=== PATIENT | male | born 1950 | race Two or more races ===

== ENCOUNTER 2019-07-20 08:30 | Inpatient (IN) | payer BC, MEDICARE ==
[~2019-07-20] VITALS: Ht 182.9 cm; Wt 83.9 kg
[~2019-07-20 08:30] MED LIST: ceFAZolin sod 1 GM in NS 55 ML IVPB ONE
[2019-07-22] VITALS (12 sets, daily range): BP systolic 97–136; BP diastolic 52–88
[2019-07-22] MEDS ORDERED: DEXAMETHASONE4 M1 IV (11:48)
[2019-07-22] MEDS ORDERED: VENCLEXTA PO (11:48)
[2019-07-22] MEDS ORDERED: DOXYCYCLINE MO100 MG ORAL (11:49)
[2019-07-22] MEDS ORDERED: ceFAZolin sod 1 GM in NS 55 ML IVPB ONE (12:00)
[2019-07-22] MEDS ORDERED: Succinylcholine 20mg/ml 10ml vial ONE (12:07)
[2019-07-22] MEDS ORDERED: Rocuronium Bromide 100mg/10ml Inj IV ONE (12:07)
[2019-07-22] MEDS ORDERED: Lidocaine 1% MPF 10mg/ml 5ml ONE (12:12)
[2019-07-22] MEDS ORDERED: fentaNYL 100 mcg/2 mL IV ONE (12:23)
[2019-07-22] MEDS ORDERED: Lacri-Lube Opth Oint 3.5gm ONE (12:29)
[2019-07-22] MEDS ORDERED: Vancomycin 1gm vial IVPB ONE (12:29)
[2019-07-22] MEDS ORDERED: Thrombin 5000 units TOPIC ONE (12:30)
[2019-07-22] MEDS ORDERED: Gelfoam Size TOPIC ONE (12:30)
[2019-07-22] MEDS ORDERED: Thrombin 5000 units spray kit TOPIC ONE (12:30)
[2019-07-22] MEDS ORDERED: Gelfoam Absorbable 1gm powder pkt TOPIC ONE (12:30)
[2019-07-22] MEDS ORDERED: Bupivacaine w/Epi 0.5% 30ml Vial INJ ONE (12:30)
[2019-07-22] MEDS ORDERED: Bacitracin 50000 Units Vial ONE (12:31)
[2019-07-22] MEDS ORDERED: Sterile Water Irrig 1000ml IRRIG ONE (13:00)
[2019-07-22] MEDS ORDERED: NS Irrig 1000ml ONE (13:00)
[2019-07-22] MEDS ORDERED: propofoL 1,000mg/100ml IV ONE (13:00)
[2019-07-22] MEDS ORDERED: LR 1000ml ONE (13:00)
[2019-07-22] MEDS ORDERED: Neostigmine 1mg/ml 10ml Inj ONE (13:00)
--- NOTE | 2019-07-22 13:19 | Anethesia Preoperative Eval ---
Anesthesia Pre-op PMH/ROS General Date of Evaluation: Jul 22, 2019 Time of Evaluation: 13:16 Anesthesiologist: Reyna ASA Score: ASA 2 Mallampati Score Class I : Soft palate, uvula, fauces, pillars visible Class II: Soft palate, uvula, fauces visible Class III: Soft palate, base of uvula visible Class IV: Only hard plate visible Mallampati Classification: Class II Surgeon: Amadou Diagnosis: Symptomatic spinal stenosis Surgical Procedure: Lumbar laminotomy Anesthesia History: none Family History: no anesthesia problems Allergies: Coded Allergies: No Known Allergies (Unverified , 07/15/19) Medications: see eMAR Patient NPO?: Yes Past Medical History Cardiovascular: Reports: arrhythmia - h/o A fib; Denies: HTN, CAD, VA, valve dz, other Pulmonary: Denies: asthma, COPD, ANU, other Gastrointestinal/Genitourinary: Reports: GERD - mild; Denies: CRI, ESRD, other Neurologic/Psychiatric: Reports: other - chronic pain; Denies: dementia, CVA, depression/anxiety, TIA Endocrine: Denies: DM, hypothyroidism, steroids, other HEENT: Reports: cataract (L), cataract (R) - s/p bilateral Sx; Denies: glaucoma, KLAWOCK (L), K[place]OCK (R), other Hematology/Immune: Reports: DVT - h/o PA off anticoagulation, IVC filter in, other - multiple myeloma in remission Musculoskeletal/Integumentary: Reports: OA; Denies: RA, DJD, DDD, edema, other PMH Narrative: as above PSxH Narrative: Bilateral cataracts Anesthesia Pre-op Phys. Exam Physician Exam Last Vital Signs Date Time Temp Pulse Resp B/P (MAP) Pulse Ox O2 Delivery O2 Flow Rate FiO2 07/22/19 11:52 Room Air 07/22/19 11:21 97.4 93 18 136/88 (104) 96 Constitutional: NAD Neurologic: CN 2-12 intact Cardiovascular: RRR, no M/R/G Respiratory: CTA Gastrointestinal: S/NT/ND Airway Exam Mallampati Score: Class II MO: full Neck: flexible Teeth: missing Dentures: no upper, no lower Anesthesia Pre-op A/P Labs see chart Studies Pre-op Studies: EKG - NSR, CXR - WNL Risk Assessment & Plan Assessment: ASA 2 Plan: GA with ETT neuromonitoring Status Change Before Surgery: No Pre-Antibiotics Drug: Ancef 2gr Given Within 1 Hr of Incision: Yes Time Given: 13:45 Wilbur Orellana MD Jul 22, 2019 13:19
--- NOTE | 2019-07-22 13:33 | Pre-Procedure Note/Attestation ---
Pre-Procedure Note/Attestation Complete Prior to Procedure Procedure Narrative: L2-5 laminectomy and Discectomy Indications for Procedure Pre-Operative Diagnosis: L2-5 stenosis, R le radic with footdrop Attestation I attest that I discussed the nature of the procedure; its benefits; risks and complications; and alternatives (and the risks and benefits of such alternatives ), prior to the procedure, with the patient (or the patient's legal healthcare sales representative). I attest that, if there was a reasonable possibility of needing a blood transfusion, the patient (or the patient's legal healthcare sales representative) was given the [facility] standardized written summary, pursuant to the [place] Blood Safety Act ([place] Health and Safety Code # 1645, as amended). I attest that I re-evaluated the patient just prior to the surgery and that there has been no change in the patient's H&P, except as documented below: Aurelio Tobar MD Jul 22, 2019 13:33
--- NOTE | 2019-07-22 13:36 | Brief Operative Note ---
Immediate Post Operative Note Operative Note Pre-op Diagnosis: L2-5 stenosis, R le radic with footdrop Procedure: l2-5 laminectomy and discectomy Post-op Diagnosis: same as pre-op Findings: consistent w/pre-op dx studies Surgeon: jas Planning Aide: nuria DO Anesthesiologist: lizzette Anesthesia: general Specimen: none Complications: none Condition: stable Fluids: 1400 Estimated Blood Loss: volume - 250 Drains: none Implant(s) used?: No Aurelio Tobar MD Jul 22, 2019 13:36
[2019-07-22] MEDS ORDERED: Acetaminophen (Non formulary) 100 ML IV ONE (14:00)
[2019-07-22] MEDS ORDERED: Morphine Sulfate 10mg/ml Inj ONE (14:29)
[2019-07-22] MEDS ORDERED: Sodium Chloride 10ml vial INJ ONE (14:30)
[2019-07-22] MEDS ORDERED: Glycopyrrolate 0.2mg/ml 1ml Vial ONE (14:34)
[2019-07-22] MEDS ORDERED: LR 1000ml 1,000 ML IVLG SCH (14:46)
[2019-07-22] MEDS ORDERED: Ketorolac 30mg Inj IV PRN (15:00)
[2019-07-22] MEDS ORDERED: Hydromorphone 0.5mg/0.5ml inj IVP PRN (15:00)
--- NOTE | 2019-07-22 16:21 | Diagnostic Imaging Report ---
INDICATION: Pain, intraoperative TECHNIQUE: Intraoperative imaging Fluoroscopy time: 5.9 seconds Total dose: 0.22519 mGym2 Total number of images: 2 COMPARISON: None FINDINGS: Intraoperative images demonstrate localizing needles projected posteriorly to what are presumably L2-3 and L3-4. Subsequent images demonstrate surgical tool projected posterior to L4 IMPRESSION: Intraoperative imaging, as described
--- NOTE | 2019-07-22 16:59 | Immediate Post-Op Evaluation ---
Immediate Post-Op Evalulation Immediate Post-Op Evalulation Procedure: L3 to S1 laminotomy with decompression Date of Evaluation: Jul 22, 2019 Time of Evaluation: 16:58 IV Fluids: 1500 Blood Products: Albumin 250 Estimated Blood Loss: 250 Urinary Output: 150 Blood Pressure Systolic: 115 Blood Pressure Diastolic: 66 Pulse Rate: 82 Respiratory Rate: 20 O2 Sat by Pulse Oximetry: 99 Temperature (Fahrenheit): 98.5 Pain Score (1-10): 1 Nausea: No Vomiting: No Complications none Patient Status: reacts, patent, extubated, none Wilbur Orellana MD Jul 22, 2019 16:59
[2019-07-22 17:11] LABS: HEMATOCRIT 34.8 % (42.0-52.0); HEMOGLOBIN 10.9 G/DL (14.2-18.0); MEAN CORPUSCULAR VOLUME 105 FL (80-99); PLATELET COUNT 90 K/UL (150-450); RED CELL DISTRIBUTION WIDTH 13.1 % (11.6-14.8); WHITE BLOOD COUNT 6.4 K/UL (4.8-10.8)
[2019-07-22] MEDS ORDERED: Docusate 100mg cap ORAL SCH (18:00)
--- NOTE | 2019-07-22 18:15 | Consultation ---
DATE OF CONSULTATION: 07/22/2019 CONSULTING PHYSICIAN: Barrett Shi MD. REFERRING PHYSICIAN: Aurelio Tobar MD. REASON FOR CONSULTATION: Acute pain consult. HISTORY OF PRESENT ILLNESS: Dr. Aurelio Tobar, Thank you kindly for consulting me to evaluate and render an opinion as to how to proceed in the management of patient's acute postoperative lumbar spine pain after his scheduled multiple level bilateral lumbar spine decompressive surgery today. 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 Six years ago, he was diagnosed with multiple myeloma. He is followed by outpatient oncologist closely. Patient has had worsening footdrop and lower back pain over the past several months requiring decompressive surgery today. You consulted me to help optimize this patient's postoperative pain control and assist with his postoperative management care. I saw the patient at bedside. I performed a detailed history and physical examination. I reviewed the medical record in detail. I spent over 75 minutes in consultation with an additional 30 minutes in medical record review including 45 minutes of [id number] time with the patient today and discussions with yourself, Dr. Tobar. PAST MEDICAL HISTORY: 1. Lumbar spine pain with scheduled multiple level decompressive lumbar spine surgery with Dr. Aurelio Tobar in July 2019. 2. Multiple myeloma elderly age. 3. History of pulmonary embolism in 2015 requiring hospitalization. 4. History of paroxysmal atrial fibrillation, currently in normal sinus rhythm, followed by a acquisition analyst, Dr. Mack. 5. History of thrombocytopenia. MEDICATIONS: At home, dexamethasone, Velcade, Venclexta, daratumumab, doxycycline, Xarelto 20 mg daily, last dose 2 weeks ago, Percocet tablets unclear if 5 mg to 10 mg, taking 1 tablet every other day p.r.n. PAST SURGICAL HISTORY: IVC filter placed 2 weeks ago for DVT prophylaxis, cataract surgery in 2018, endoscopy, colonoscopy. FAMILY HISTORY: Thyroid cancer, maternal, lymphoma, breast cancer, coronary artery disease. 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 Patient drinks alcohol rarely. He denies tobacco or marijuana usage. He lives at home with his . ALLERGIES: No known drug allergies. REVIEW OF SYSTEMS: Per attending physician. PHYSICAL EXAMINATION: VITAL SIGNS: Age 69, height 6 feet 0, weight 84 kg. Body mass index 25. Preoperative vital signs, afebrile, pulse 93, respirations 18, blood pressure 136/88, oxygen saturation 96% on room air. HEENT: Normocephalic and atraumatic. CARDIOPULMONARY: A detailed cardiopulmonary exam per Dr. Pate. NEUROLOGIC: A detailed lumbar spine and neurologic exam per Dr. Tobar. GENITOURINARY: Deferred. DIAGNOSTIC TESTING: Shows urinalysis negative. INR 1.1. PTT 27. Laboratories from 07/15/2019, glucose 97, sodium 141, potassium 4.1, chloride 109, bicarb 25, BUN 21, creatinine 1.0, calcium 9.1, total protein 5.6, albumin 4.0. AST 12, ALT 14, alkaline phosphatase 34, total bilirubin 0.6. White count 5, hematocrit 35, platelets 126. COVID preop testing negative 07/15/1999. A 12-lead EKG shows marked left axis deviation, heart rate 92. Preoperative chest x-ray shows no radiographic evidence of acute cardiopulmonary disease or pneumonia dated 07/15/2019. IMPRESSION: 1. Lumbar spine pain with scheduled multiple level decompressive lumbar spine surgery with Dr. Aurelio Tobar in July 2019. 2. Multiple myeloma elderly age. 3. History of pulmonary embolism in 2015 requiring hospitalization. 4. History of paroxysmal atrial fibrillation, currently in normal sinus rhythm, followed by a acquisition analyst Dr. Mack. 5. History of thrombocytopenia. 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 He has been using Percocet chronically although he used the medication rarely. Since he is able to tolerate oxycodone without any adverse side effects, I will start him on oxycodone instant release 10 mg every 3 hours p.r.n. for mild pain. He denies any allergies and cannot recall exposure to morphine or Dilaudid in the past. I have set up 2 different doses of Dilaudid starting with 0.5 mg intravenously every 2 hours as needed for moderate pain. I have ordered a double dose of 1 mg subcutaneous Dilaudid every 3 hours as needed for severe breakthrough pain. At this time, I will hold off on the class of benzodiazepines as he does not appear to show any anxiety symptoms. He also seems very compliant. To help reduce the risk for any urinary retention issues postoperatively, I have ordered Flomax 0.4 mg daily along with t.i.d. dosing of Urecholine 25 mg. I have asked the nursing team to place Chloraseptic spray at the bedside in case of any sore throat complaints postoperatively. I have added a p.r.n. dose of Benadryl 25 mg orally every 6 hours in case of any itching complaints. I will place patient on Colace 100 mg b.i.d. to help with bowel regularity and I will order a p.r.n. dose of milk of magnesia as a rescue laxative. I have ordered Fioricet tablets 1 tablet orally every 8 hours in case of any headache symptoms. I have ordered Benadryl 25 mg orally every 6 hours p.r.n. for any itching symptoms postoperatively. I have ordered Zofran 4 mg intravenously every 4 hours as a rescue antiemetic. I will place patient on Protonix 40 mg nightly for GI ulcer prophylaxis and I have also ordered a p.r.n. dose of Mylanta 30 mL q.6h. in case of any GERD symptom exacerbation. Tylenol is available as a rescue antipyretic agent and I will order incentive spirometer to encourage good pulmonary toilet. The patient had an IVC filter placed for DVT prophylaxis approximately 2 weeks ago. Patient also has a history of using Xarelto 20 mg daily, previous to the IVC filter being placed. I will defer to Dr. Tobar and his team to determine if chemical anticoagulation needs to be restarted, in addition to the use of sequential compression pneumatic devices per the surgeon. Barrett Shi M.D. DR: JACOBO JOB#: [id number] CC:
[2019-07-22] MEDS ORDERED: Chloraseptic Spray 20mL Bottle ORAL PRN (19:00)
[2019-07-22] MEDS ORDERED: HYDROcodone/Acetamin 7.5/325 tab ORAL PRN (19:00)
[2019-07-22] MEDS ORDERED: oxyCODONE 5mg IR tab ORAL PRN (19:00)
[2019-07-22] MEDS ORDERED: Metoclopramide 10mg/2ml Inj IVP PRN (19:00)
[2019-07-22] MEDS ORDERED: DiphenhydrAMINE 25mg Tab ORAL PRN (19:00)
[2019-07-22] MEDS ORDERED: HYDROmorphone 1mg/ml Carpuject IVP PRN (19:00)
[2019-07-22] MEDS: D5 1/2NS 1,000 ML IV SCH (19:00)
--- NOTE | 2019-07-22 20:45 | Operative Note - Dictated ---
DATE OF OPERATION: 07/22/2019 SURGEON: Aurelio Tobar M.D. FACILITIES PLANNER: ERNESTINA Cannon ANESTHESIA: Wilbur Orellana M.D. ANESTHESIA TYPE: General endotracheal anesthesia. PREOPERATIVE DIAGNOSES: 1. L3-L4 disc extrusion with radiculopathy, right lower extremity and footdrop. 2. Spinal stenosis L2-L3, L3-L4, and L4-L5 foramen. POSTOPERATIVE DIAGNOSES: 1. L3-L4 disc extrusion with radiculopathy, right lower extremity and footdrop. 2. Spinal stenosis L2-L3, L3-L4, and L4-L5 foramen. PROCEDURES: 1. Right-sided laminectomy, microdiskectomy L3-L4. 2. Foraminotomy L3-L4 and L4-L5, right side. 3. Bilateral laminal foraminotomy performed through a right-sided approach at L3-L4 and L4-L5. 4. Neurolysis L4 nerve roots. 5. Use of operating microscope. 6. Neurodiagnostic monitoring. ESTIMATED BLOOD LOSS: 250 mL. FLUIDS: 1400 mL. INDICATIONS: The patient is a very pleasant gentleman with a significant right-sided footdrop. He had sustained a disk herniation. He also does have history of myeloma, status post DVT requiring vena cava filter. Pros, cons, risks, and benefits of surgery were discussed. Due to the dense nature of the footdrop, surgical recommendation was recommended. I did discuss with him the fact that the nerve recovery may not come back after the procedure session. RISK NOTE: The patient was explained in detail risks and benefits of surgery to include, but not be limited to those of bleeding, infection, damage to nerves, vessels, tendons, anesthetic risk, allergic reaction, aspiration, possibly . The patient understood and wished to proceed. I specifically did discuss that there may be incomplete nerve root recovery. The patient understood and wished to proceed. OPERATIVE PROCEDURE IN DETAIL: The patient was taken to the operating suite. After general endotracheal anesthesia was obtained, Hogan catheter was placed. At this point, the patient was turned prone onto the Reji frame. The back was prepped and draped in the usual sterile fashion after all bony prominences were well padded. At this point, fluoroscope was brought in place and needles were placed and was felt to be the L3-L4 and L4-L5 level. We were able to confirm the levels. The patient then received 10 mL of lidocaine/Marcaine with epinephrine. The incision was made from L2 through L5. At this point, subperiosteal dissection was carried out at L2-L3, L3-L4, and L4-L5. The levels were confirmed. A small self-retaining Olvera retractor was inserted. Once the levels were confirmed fluoroscopically, a high-speed drill was used to perform laminectomy of the inferior portion of L3 and superior portion of L4. Medial facetectomy was performed using a high-speed drill. The ligamentum flavum was removed in a piecemeal fashion. The extensive epidural lipomatosis was encountered and this was removed. At this point, the nerve was gently retracted medially. The space directly under the exiting L4 nerve roots was probed and incised. A remnant of a relatively large disk herniation was removed in a piecemeal fashion from under the L4 nerve root. The nerve root was markedly swollen and irregularly shaped. A neurolysis was performed to free up this nerve root. We were then able to mobilize and remove the remainder of the extruded disk fragment. At this point, several passes were made within the disk space itself demonstrating a near complete empty disc phenomenon. Any loose disk fragments were removed. Copious intradiscal irrigation was performed as well as irrigation of the pocket through which the disk extrusion had migrated inferiorly. At this point, a subtotal L4 laminectomy was performed from the top portion and a foraminotomy at the L4-L5 level was performed and was probed to be free. Once satisfied with this, copious irrigation was performed. High-speed drill was then used to drill out the contralateral lamina and perform a left-sided laminectomy at the L3-L4 level as well. Ligamentum flavum was removed in a piecemeal fashion. FloSeal was then applied. Attention was turned to the L2-L3 level and hemilaminotomy, foraminotomy, and medial facetectomy was performed using standard technique using high-speed drill, curved curettes, and Kerrison punches. The table was once again rotated and then oblique drilling of the undersurface of the lamina of L2-L3 was performed decompressing the left side as well. Copious irrigation was performed. Valsalva maneuver was performed demonstrating no evidence of CSF leak. Once satisfied with this, FloSeal was applied. Meticulous hemostasis was achieved. The patient then received 1 gram of vancomycin powder. The fascia was repaired using #1 Vicryl and subcutaneous closure using 2-0 Vicryl. Please note that, medium Hemovac subfascial drain was placed. Once a sterile dressing was applied, the patient was turned onto his back, awakened, extubated, and transferred to recovery room in stable condition. The Hogan catheter was removed. INTRAOPERATIVE FINDINGS: At this point, the patient was noted to have extensive scar tissue formation and epidural lipomatosis both at the L2-L3, L3-L4 level, which also resulted in very soft tissues. This did result in a lot of oozing and generalized capillary bleeding, which was rather unexpected, especially within the epidural space. Aurelio Jonny Tobar DR: HODAN JOB#: [id number] CC: DARA
--- NOTE | 2019-07-22 21:23 | Cardiology Progress Note ---
Assessment/Plan Assessment/Plan full note dicataed [id number] tele observation ekg labs in am ivf neuro consutl d/w dr sosa ct of head neg for gors accute ic abnormlaities d/we pt post ct his sx are not changed post ct he was able to urinate Objective Last 24 Hour Vital Signs Date Time Temp Pulse Resp B/P (MAP) Pulse Ox O2 Delivery O2 Flow Rate FiO2 07/22/19 18:30 98.9 89 20 131/78 (95) 94 07/22/19 18:16 98.3 07/22/19 18:05 98.3 85 13 125/75 100 Nasal Cannula 3 07/22/19 18:00 98.0 87 20 97/52 (67) 97 07/22/19 17:55 85 21 128/80 100 Nasal Cannula 3 07/22/19 17:40 85 14 119/75 100 Nasal Cannula 3 07/22/19 17:25 89 13 129/81 100 Nasal Cannula 3 07/22/19 17:15 87 17 121/80 100 Simple Mask 6 07/22/19 17:05 84 12 122/75 100 Simple Mask 6 07/22/19 16:59 82 20 99 07/22/19 16:55 82 14 121/81 100 Simple Mask 6 07/22/19 16:50 83 14 114/69 100 Simple Mask 6 07/22/19 16:48 98.5 80 15 111/74 100 Simple Mask 6 07/22/19 11:52 Room Air 07/22/19 11:21 97.4 93 18 136/88 (104) 96 Laboratory Tests Test 07/22/19 17:07 White Blood Count 6.4 K/UL (4.8-10.8) Red Blood Count 3.30 M/UL (4.70-6.10) L Hemoglobin 10.9 G/DL (14.2-18.0) L Hematocrit 34.8 % (42.0-52.0) L Mean Corpuscular Volume 105 FL (80-99) H Mean Corpuscular Hemoglobin 33.2 PG (27.0-31.0) H Mean Corpuscular Hemoglobin Concent 31.5 G/DL (32.0-36.0) L Red Cell Distribution Width 13.1 % (11.6-14.8) Platelet Count 90 K/UL (150-450) L Mean Platelet Volume 7.0 FL (6.5-10.1) Neutrophils (%) (Auto) % (45.0-75.0) Lymphocytes (%) (Auto) % (20.0-45.0) Monocytes (%) (Auto) % (1.0-10.0) Eosinophils (%) (Auto) % (0.0-3.0) Basophils (%) (Auto) % (0.0-2.0) Differential Total Cells Counted 100 Neutrophils % (Manual) 78 % (45-75) H Lymphocytes % (Manual) 5 % (20-45) L Monocytes % (Manual) 16 % (1-10) H Eosinophils % (Manual) 1 % (0-3) Basophils % (Manual) 0 % (0-2) Band Neutrophils 0 % (0-8) Platelet Estimate Decreased L Platelet Morphology Normal Polychromasia 1+ Hypochromasia 1+ Macrocytosis 2+ Elton Alvarado MD Jul 22, 2019 21:23
[2019-07-22] MEDS: Tamsulosin 0.4mg cap ORAL SCH (21:36)
[2019-07-22] MEDS: ceFAZolin sod 1 GM in D5W 55 ML IV SCH (21:58)
--- NOTE | 2019-07-22 22:20 | Diagnostic Imaging Report ---
EXAM: CT Head Without Intravenous Contrast CLINICAL HISTORY: WEAK TECHNIQUE: Axial computed tomography images of the head/brain without intravenous contrast. CTDI is 53 mGy and DLP is 1046 mGy-cm. One or more of the following dose reduction techniques were used: automated exposure control, adjustment of the mA and/or kV according to patient size, use of iterative reconstruction technique. COMPARISON: No relevant prior studies available. FINDINGS: Brain: Unremarkable. No hemorrhage. No significant white matter disease. No edema. Ventricles: Unremarkable. No ventriculomegaly. Bones/joints: Unremarkable. No acute fracture. Soft tissues: Unremarkable. Sinuses: Unremarkable as visualized. No acute sinusitis. Mastoid air cells: Unremarkable as visualized. No mastoid effusion. IMPRESSION: No acute intracranial abnormality.
[2019-07-23] VITALS: BP_SYST 130; BP_SYST 133; BP_DIAS 57; BP_DIAS 61
[2019-07-23] MEDS: HYDROcodone/Acetamin 7.5/325 tab ORAL PRN ×2 (02:46→08:24)
[2019-07-23 04:00] VITALS: BP 113/65
--- NOTE | 2019-07-23 04:30 | Consultation ---
DATE OF CONSULTATION: 07/22/2019 CARDIOLOGY CONSULTATION REFERRING PHYSICIAN: Dr. Tobar. REASON FOR REFERRAL: Postoperative medical care. HISTORY OF PRESENT ILLNESS: The patient is a 69-year-old gentleman with a history of multiple medical problems as given below. The patient is seen postoperatively. He had spinal surgery by Dr. Tobar earlier today and I am seeing him postoperative for followup. On evaluation, the patient denies any chest pain, denies any shortness of breath. There has been no PND or orthopnea, palpitations. His only issue is that he has not been able to feel the urge to urinate and today he has not eaten anything. He has received some intravenous fluids postoperatively. He does not have any pain, pressure, tightness or heaviness in his chest. He has an extensive medical history that I was able to review from the preop consultation as well as review of the patient's chart from [facility]. He does have a history of pulmonary embolism approximately 5 years ago and ongoing problems with multiple myeloma and in anticipation of that he apparently underwent IVC filter placement by the office of Dr. Patel to prevent deep venous thrombosis and pulmonary embolism and a period of time that he will be off Xarelto that he has been taking for the past 5 years. His Xarelto was discontinued approximately 2 weeks ago. PAST MEDICAL HISTORY: Also is positive for, his chart indicates he has a history of melanoma. He has a history of paroxysmal atrial fibrillation, which he indicates related to one of his medications he was taking for multiple myeloma. He has a history of multiple myeloma, history of coronary calcification noted on the CT scan, history of pericardial effusion and acute kidney injury. Kacey esophagitis and tubular adenoma were also noted. Gastroesophageal reflux disease, hiatal hernia. His multiple myeloma was followed by Dr. Lockett and he has a history of pulmonary embolism as mentioned and viral meningitis. PRIOR PROCEDURES: His has had a history of colonoscopies and endoscopies majorly as mentioned. ALLERGIES: He has no known drug allergies. FAMILY HISTORY: His mother had history of myocardial infarction and heart failure. Father had renal cancer and sister has breast cancer. Maternal grandmother has coronary disease. There was a maternal grandfather with thyroid cancer and sisters have thyroid cancer and melanoma as well. 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 REVIEW OF SYSTEMS: GASTROINTESTINAL: He has had no nausea or vomiting. No diarrhea. He has not had a bowel movement. GENITOURINARY: As mentioned, he has not had any blood on his urine. He has not had a sensation of urge of urination. He has urinated some postop. PULMONARY: Denies any coughing or wheezing. CONSTITUTIONAL: Denies any fever, chills, or night sweats. NEUROLOGICAL: He denies although during my evaluation it became apparent that he has some problems with coordination with the right upper extremity that he states he has noticed after the surgery. PHYSICAL EXAMINATION: GENERAL: Shows to be an middle-aged gentleman, in no respiratory distress. NECK: Supple. No jugular venous distention. LUNGS: Clear to auscultation and percussion. CARDIAC: S1 is normal. S2 is normal. Regular rate and rhythm. No heaves or thrills noted. ABDOMEN: Soft, nontender. Positive bowel sounds. EXTREMITIES: There is no edema. NEUROLOGICAL: He is awake, alert, responsive. His strength in upper extremities appears to be quite well, however on finger-nose testing he appeared to be apraxic. Extremity appears to be excellent. However, his right upper extremity appears to be somewhat ataxic and he frequently hits his face. Kggxta-bz-ovqj testing, he is unable to achieve the goal of touching the fingertip or touching his nose. Otherwise, he is awake, alert, and responsive. PREOP LABORATORIES: Were noted and the patient has had hemoglobin 11.9 preoperatively. ASSESSMENT AND PLAN: 1. Right upper extremity ataxia, acute in onset. 2. Coronary calcification noted on CT scan per report to [facility]. 3. Paroxysmal episodes of atrial fibrillation. 4. Pericardial effusion history. 5. Renal insufficiency. 6. Status post spinal surgery. 7. Multiple myeloma. Dr. Tobar, this patient was seen in cardiac consultation. As discussed, the right upper extremity ataxia is a concern. The patient had his surgery completed approximately 5 hours ago. He is clearly out of the window for any treatment and the possibility of cerebrovascular accident. I recommend having a CT scan of his head at this time to exclude any neurological evaluation. Neurological evaluation will be requested and although none available at this time to be seen by a neurologist, we will have that tomorrow. In discussion, the patient will undergo MRI of the brain, and as requested by Dr. Tobar, MRI of the cervical spine will also be ordered. I will transfer the patient to telemetry for monitor for episodes of atrial fibrillation. The patient was last seen by his early breastfeeding care specialist back in 04/2018 and not since then and the records indicate that he has been tried on different medications for rhythm control, but has not been tolerated and has not desired to be on maintenance therapy and he has been maintained on Cardizem and has been on Xarelto for the pulmonary embolism, which has been protective, likely for any episodes of paroxysmal atrial fibrillation. At this time, the patient has contraindication to anticoagulation or antiplatelet therapy because of this relatively acute spine surgery in the past few hours. His strength appears to be intact in the upper extremity and he will have echocardiogram and EKG performed in the morning. Telemetry observation. MRI of the brain. Case was fully discussed with Dr. Tobar and the patient will be followed on telemetry. Elton Alvarado M.D. DR: EVELYN JOB#: [id number] CC:
[2019-07-23] MEDS: ceFAZolin sod 1 GM in D5W 55 ML IV SCH ×2 (06:02→13:51)
[2019-07-23] MEDS: D5 1/2NS 1,000 ML IV SCH ×2 (06:02→15:00)
[2019-07-23 07:09] LABS: HEMATOCRIT 29.6 % (42.0-52.0); HEMOGLOBIN 10.1 G/DL (14.2-18.0); MEAN CORPUSCULAR VOLUME 99 FL (80-99); PLATELET COUNT 82 K/UL (150-450); RED BLOOD COUNT 2.99 M/UL (4.70-6.10); RED CELL DISTRIBUTION WIDTH 11.1 % (11.6-14.8); WHITE BLOOD COUNT 5.6 K/UL (4.8-10.8)
[2019-07-23 07:27] LABS: ALANINE AMINOTRANSFERASE 19 U/L (12-78); ALBUMIN 3.1 G/DL (3.4-5.0); ALBUMIN/GLOBULIN RATIO 1.5 (1.0-2.7); ALKALINE PHOSPHATASE 31 U/L (46-116); ANION GAP 7 mmol/L (5-15); ASPARTATE AMINO TRANSFERASE 10 U/L (15-37); BILIRUBIN,TOTAL 0.7 MG/DL (0.2-1.0); BLOOD UREA NITROGEN 20 mg/dL (7-18); CALCIUM 7.9 MG/DL (8.5-10.1); CARBON DIOXIDE 26 MMOL/L (21-32); CHLORIDE 106 MMOL/L (98-107); CREATININE 1.1 MG/DL (0.55-1.30); POTASSIUM 3.7 MMOL/L (3.5-5.1); SODIUM 139 MMOL/L (136-145)
[2019-07-23 08:00] VITALS: BP 130/75
[2019-07-23] MEDS ORDERED: Docusate Sod/Senna tab ORAL SCH (09:00)
[2019-07-23] MEDS: Bethanechol 25mg Tab ORAL SCH ×3 (09:44→17:03)
[2019-07-23] MEDS: Docusate 100mg cap ORAL SCH ×2 (09:44→17:04)
--- NOTE | 2019-07-23 10:53 | 48 Hour Post Anesthesia Eval ---
Post Anesthesia Evaluation Procedure: L3 to S1 laminotomy with decompression Date of Evaluation: Jul 23, 2019 Time of Evaluation: 10:52 Blood Pressure Systolic: 118 0: 72 Pulse Rate: 68 Respiratory Rate: 20 Temperature (Fahrenheit): 97.6 O2 Sat by Pulse Oximetry: 98 Airway: patent Nausea: No Vomiting: No Pain Intensity: 2 Hydration Status: adequate Cardiopulmonary Status: stable Mental Status/LOC: patient returned to baseline Follow-up Care/Observations: n/a Post-Anesthesia Complications: none Follow-up care needed: N/A Wilbur Orellana MD Jul 23, 2019 10:53
[2019-07-23] MEDS ORDERED: oxyCODONE 5mg IR tab ORAL SCH (11:07)
--- NOTE | 2019-07-23 11:27 | Diagnostic Imaging Report ---
Indication: Acute right upper extremity ataxia Technique: Grayscale and duplex images of the bilateral cranial carotid and vertebral arteries Comparison: none Findings: On the right, grayscale and duplex images demonstrate hard and soft atherosclerotic plaquing. No significant stenosis. Doppler flow velocities and waveforms are within normal limits. On the left, grayscale and duplex images demonstrate hard and soft atherosclerotic plaquing. More distally in the internal carotid artery, there is flow velocity elevation, peak systolic velocity 132 cm/s. Note, however, that common carotid artery flow velocities are also somewhat elevated and grayscale images do not demonstrate significant narrowing. Patent bilateral vertebral arteries, antegrade flow. Patent bilateral subclavian arteries, antegrade flow. Impression: Less than 50% diameter stenosis on the right Equivocal findings on the left; elevated flow velocity in the internal carotid artery distal to the bifurcation suggest 50-69% stenosis, but grayscale images are more suggestive of less than 50% stenosis. Consider CT angiography to clarify if clinically indicated All stenosis was measured based on the NASCET criteria. Velocity criteria are extrapolated from diameter data as defined by the Society of radiologists in ultrasound consensus conference. Radiology 2003:229; 340-346
[2019-07-23 12:00] VITALS: BP 116/68
--- NOTE | 2019-07-23 12:07 | Diagnostic Imaging Report ---
Indication: Right upper arm ataxia, acute onset Technique: sagittal T1 fast spin echo, axial T1 FLAIR, axial T2 FLAIR, axial T2 FS PROPELLER, axial T2* GRE, axial diffusion weighted images. ADC and exponential ADC maps generated Comparison: Head CT dated 07/22/2019 Findings: Faint diffusion abnormality is seen in the left inferior posterior frontal deep white matter, presumably represents so-called T2 shine through artifact as there is increased T2 signal as well as high signal on the ADC map. No definite foci of restricted diffusion to suggest acute infarct demonstrated. No acute hemorrhage or edema. No mass effect nor midline shift. Normal size ventricles and extra axial CSF spaces. Small focus of high T2 signal is seen in the left frontal deep white matter, accounting for the diffusion abnormality. Another of these is seen in the right posterior parietal deep white matter. The vascular flow voids are preserved.. There is evidence of prior bilateral cataract surgery. The sinuses are clear. Impression: Negative for acute intracranial bleed, mass effect, or infarct Minimal focal deep white matter T2 hyperintensities as described, most likely representing foci of microvascular ischemic change, less likely demyelinating disease
--- NOTE | 2019-07-23 12:38 | Diagnostic Imaging Report ---
Indication: Acute onset right upper arm ataxia Technique: Sagittal T1 FLAIR PROPELLER, sagittal T2 PROPELLOR, sagittal STIR, axial T2 PROPELLER, axial 3D COSMIC ASPIR images were obtained through the cervical spine Comparison: none Findings: Bony alignment is normal for very slight widening rightward neck tilt. Vertebral body heights are preserved. Vertebral marrow signal is normal. The intrinsic cord signal is normal. At C3-4, there is mild to moderate degenerative disc narrowing. There is circumferential annular bulge as well as broad-based posterior disc protrusion. No significant spinal canal stenosis. There is moderate right and moderate to severe left neural foraminal stenosis at this level. At C4-5, there is mild degenerative disc narrowing. There is circumferential annular bulge as well as broad-based posterior disc protrusion. This, in combination with slight ligament flavum hypertrophy, results in borderline narrowing of the spinal canal. There is mild to moderate right and mild left neural foraminal stenosis. At C5-6, there is mild degenerative disc narrowing. Circumferential annular bulge is noted. No significant narrowing of the spinal canal is demonstrated, however. There is moderate to severe bilateral neural foraminal stenosis bilaterally. At C6-7, there is mild to moderate degenerative disc narrowing. No significant disc bulge or protrusion or spinal stenosis. There is mild bilateral neural foraminal stenosis. At C7-T1, there is minimal degenerative disc narrowing. No significant disc bulge or protrusion or spinal stenosis. There are also degenerative changes of the visualized upper thoracic spine. The included or spinal soft tissues are unremarkable. Impression: No acute abnormality Multilevel degenerative changes, as detailed on a level by level basis above. Note multilevel significant neural foraminal stenoses.
--- NOTE | 2019-07-23 14:15 | Progress Note ---
DATE: 07/23/2019 ACUTE PAIN MANAGEMENT PHYSICIAN PROGRESS NOTE MEDICATIONS: Medication administration record reviewed. Medications include Tylenol, Fioricet, Mylanta, Artificial Tears, Urecholine, Catapres, Benadryl, Colace, [place], Dilaudid, Toradol, Reglan, Zofran, oxycodone, Protonix, Chloraseptic spray, Reema-Colace, Flomax, and Restoril. LABORATORY STUDIES: From this morning, July 23, 2019, shows white count 6, hematocrit 30, platelets 82,000. Sodium 139, potassium 3.7, chloride 106, bicarb 26, BUN 20, creatinine 1.1. Glucose 108. Calcium 7.9. Total bilirubin 0.7, AST 10, ALT 19, and alkaline phosphatase 31. Total protein 5.1, albumin 3.1. OBJECTIVE: Vital signs, within normal limits. Afebrile, pulse 68, respirations 20, blood pressure 130/75. Oxygen saturation 98% on room air. SUBJECTIVE: I saw the patient at the bedside with his and the nurse. I also discussed the case with the charge nurse, LUIS Hopper, Dr. Alvarado. Cardiology has been following the patient after surgery yesterday, the patient was complaining of the weakness in an upper extremity. Dr. Alvarado has been ordering the radiology. DIAGNOSTIC TESTING: Head CT was performed July 22, 2019 showing no acute intracranial abnormality and unremarkable imaging. MRI testing has been ordered for this morning. The patient does have multiple medical issues including multiple myeloma history along with history of pulmonary embolism with IVC filter placement, and history of paroxysmal atrial fibrillation. Thank you for Dr. Alvarado's consultation with these complicated matters. I saw the patient at bedside with his . The patient at this time is alert and oriented. I defer detailed neurologic exam to Dr. Alvarado. Hemovac drain remains in place and put out 70 mL. This drain was emptied at 10 o'clock this morning. It is unclear if the drain was NC previously since the recovery room. The patient had been dosed with oral oxycodone. Dosing seemed to be inadequate. I switched his pain medications to subcutaneous Dilaudid 1 mg every three hours and p.r.n. I had earlier trialed him on 0.5 mg intravenously. This was well tolerated without any oversedation or apparent neurologic deficits. So, I have simplified his analgesic regimen. He will use of Dilaudid 1 mg subcutaneous every three hours p.r.n. for severe breakthrough pain. Since the 5 mg of oral oxycodone was inadequate, I have doubled the dose to 10 mg, which I will dose every three hours p.r.n. I have asked the pharmacy to given him an immediate dose now to stay ahead pain. I did streamline his analgesic regimen. The patient's platelet count is chronically low. We will recheck the level in the morning. The patient is in good spirits and shows no evidence for anxiety. The patient remains on Flomax and Urecholine to help with urine flow. The patient does have a good supply of Percocet already for home usage at home with his . Barrett Shi M.D. DR: INESSA JOB#: [id number] CC:
--- NOTE | 2019-07-23 15:20 | Consultation ---
Consult Note Consult Note [facility] NEUROLOGY CONSULTATION July 23, [address] Alvarado & Dr. Tobar, I evaluated Mr. Bonifacio Duong and my assessement is as follows. HISTORY: Mr. Bonifacio Duong is a 69-year-old, right-handed, gentleman, who does have a past history of multiple myeloma which is under control at this point in time, paroxysmal atrial fibrillation related to a chemotherapeutic agent in the past, gastroesophageal reflux disease, coronary artery calcification, pulmonary embolism associated with a chemotherapeutic agent use, and lumbosacral spine disease. He has had low back pain radiating into both lower extremities for the last year or so and for the last 3 months he has had a right sided foot drop. As a result of that he underwent lumbosacral surgery on 07/22/2019. The surgery was uneventful but when he regained consciousness he noticed that his right upper extremity was poorly coordinated. When he was evaluated by Dr. Alvarado last night after his surgery he was noted to have right upper extremity dysmetria. He denies any weakness other than the pre-existing weakness in his right lower extremity. He also denies any altered sensations. He denies any prior history of weakness on one side of the other other than his right foot drop, problems with speech, problems with language, problems with vision, or other neurological symptoms in the past. Last night after his right upper extremity dysmetria was discovered a CT scan of the brain was done immediately and revealed no acute pathology. Today he feels significantly better. He feels that the poor coordination in his right upper extremity has improved markedly. He denies any other new neurological symptoms. PAST HISTORY: Multiple myeloma Paroxysmal atrial fibrillation Gastroesophageal reflux disease Coronary artery calcification Pulmonary embolism Lumbosacral spine disease. FAMILY HISTORY: His mother had coronary artery disease with a myocardial infarction and heart failure. His father had renal cancer. His sister had breast cancer. PERSONAL HISTORY: Home: He lives at home with his . 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 Habits: He smoked for approximately 10 years in the past but stopped smoking quite a few years ago. He used to drink in moderation in the past. He denies use of any illicit drugs. ALLERGIES: No known allergies. NEUROLOGIC REVIEW OF SYSTEMS: Benign. PHYSICAL EXAMINATION: GENERAL: The patient is a well developed, well nourished, gentleman, lying in bed, in no acute distress. VITAL SIGNS: Pulse: 80/minute and regular. Blood Pressure: 116/68 mm of Hg. Respirations: 20/minute Temperature: 99.1 F HEAD: Normocephalic and atraumatic. NECK: No neck rigidity was observed. EENT: Benign. NEUROLOGIC EXAMINATION: MENTAL STATUS EXAMINATION: He was alert and awake. He was oriented to person, place and time. He was able to recall 3/3 words immediately after 1 minute and after 3 minutes. He was able to remember [employer] through [employer]. His mathematical skills were good. His visuospatial function was preserved. SPEECH: No dysarthria was noted. LANGUAGE: No aphasia was noted. CRANIAL NERVE EXAMINATION: II: The visual de leon were intact to confrontation testing. III, IV, : External ocular movements were full and pupils 3 mm in diameter equal, round, regular and reactive to light. V: The facial sensations were normal, and the temporales, masseters and pterygoids functioned normally. VII: The facial expressions were normal and no facial asymmetry was seen. VIII: The patient was able to hear well bilaterally and had no nystagmus. IX: The palate moved symmetrically on phonation. X: There was no hoarseness of voice. XI: The sternocleidomastoids and trapezii functioned normally. XII: The tongue was in the midline without any fasciculations or atrophy. MOTOR SYSTEM: The tone was normal in all 4 extremities. Examination of muscle mass revealed no focal wasting. Examination of power revealed G 5/5 power except for G 4+/5 in the right finger extensors, and G 3/5 in the right ankle dorsiflexors and toe extensors. SENSORY EXAMINATION: Sensations to pinprick, light touch, and graphesthesia were normal. COORDINATION: Znrzhb-wa-izgm and iovc-ks-cyph testing were performed well on the left side and would dysmetric on the right side. Rapid alternating movements were also normal on the left side and clumsy on the right. REFLEXES: 2++ on the right and 2+ on the left at the biceps, triceps, brachioradialis, and knees. 0 at both ankles. The plantar responses were flexor bilaterally. STANCE & GAIT: Could not be tested. DIAGNOSTIC IMPRESSION: 1. Mr. Bonifacio Duong is a 69-year-old, right-handed, gentleman, who does have a past history of multiple myeloma which is under control at this point in time, paroxysmal atrial fibrillation related to a chemotherapeutic agent in the past, gastroesophageal reflux disease, coronary artery calcification, pulmonary embolism associated with a chemotherapeutic agent use, and lumbosacral spine disease. He underwent lumbosacral surgery on 07/22/2019. 2. When he regained consciousness he noticed that his right upper extremity was poorly coordinated. When he was evaluated by Dr. Alvarado last night after his surgery he was noted to have right upper extremity dysmetria. His right upper extremity coordination has improved since then but is still not normalized. 3. On neurological examination, at this time, he does have weakness in the right finger extensors, weakness in the right ankle dorsiflexors and toe extensors, brisker reflexes on the right side compared to the left, right upper and lower extremity dysmetria and right upper extremity dysdiadochokinesis. 4. The CT scan of the brain performed on 07/22/2019 is benign. 5. The MRI scan of the brain performed on 07/23/2019 reveals no acute pathology but does reveal deep white matter changes on both sides with a relatively large area in the left centrum semiovale. 6. The patient's history, neurological examination, and imaging studies, are most consistent with recrudescence of neurological dysfunction in an area of old ischemia in the left centrum semiovale which was unnoticed in the past. The recrudescence of symptoms is most probably related to the recent anesthesia and surgical procedure. RECOMMENDATIONS: 1. Agree with management thus far. 2. Try to keep systolic blood pressure in the 110-130 range. 3. Work-up for treatable causes of cerebrovascular disease, with laboratory tests, cerebrovascular noninvasive profile and echocardiogram with bubble study. 4. Start Plavix 75 mg daily as soon as it is safe from the surgical point of view. 5. Prolonged cardiac monitoring to evaluate for paroxysmal atrial fibrillation, and if the patient does have that condition he should be anticoagulated. Thank you for entrusting me to take care of Mr. Duong's Neurologic needs. I shall follow him with you. Sincerely, Napoleon Whaley M.D., M.S.P.H. Neurologist & Clinical Neurophysiologist Napoleon Whaley MD Jul 23, 2019 15:20
[2019-07-23] MEDS: HYDROmorphone 1mg/ml Carpuject SUBQ PRN (15:28)
[2019-07-23] MEDS: oxyCODONE 5mg IR tab ORAL PRN ×2 (17:04→20:42)
--- NOTE | 2019-07-23 18:18 | Orthopedic Spine Progress Note ---
Ortho Spine - Progress Note Subjective Symptoms: c/o post-op back pain, improved - as compared to pre-op, other - had RUE discoordination last night. Now significantly better Additional Comments: CT and MRI brain without acute abnormality Objective Vital Signs: Last 24 Hour Vital Signs Date Time Temp Pulse Resp B/P (MAP) Pulse Ox O2 Delivery O2 Flow Rate FiO2 07/23/19 12:00 83 07/23/19 12:00 99.1 81 20 116/68 (84) 95 07/23/19 10:53 68 20 98 07/23/19 09:00 Room Air 07/23/19 08:00 98.6 83 20 130/75 (93) 94 07/23/19 08:00 104 07/23/19 04:00 98.2 85 20 113/65 (81) 93 07/23/19 04:00 86 07/23/19 00:23 84 07/23/19 00:00 97.6 75 20 130/57 (81) 95 07/23/19 00:00 98.1 82 20 133/61 (85) 95 07/22/19 21:00 Room Air 07/22/19 18:30 98.9 89 20 131/78 (95) 94 07/22/19 18:16 98.3 I&O: Intake and Output 07/22/19 07/23/19 19:00 07:00 Intake Total 1950 ml Output Total 420 ml Balance 1530 ml Intake Oral 100 ml IV Total 1600 ml Other 250 ml Output Urine Total 150 ml Drainage Total 20 ml Estimated Blood Loss 250 ml # Voids 1 Wound: clean, intact Drains: hemovac Neuro Status: abnormal - tib ant and EHL RLE 4+-- improved compared to preop. Finger nose and rapid alt movement intact Rue Additional Comments: CT MRI barin and Mri c spine without acute abnormality that would explain coordination loss rue-- acute stroke ruled out Assessment Procedure Performed: l2-5 laminectomy and discectomy Additional Comments: Postop RUE discoordination-- possible TIA Plan Plan: PT, pain management, continue drain, discharge plan - possibly in am if cleared by Cards, neuro and PT Aurelio Tobar MD Jul 23, 2019 18:18
--- NOTE | 2019-07-23 19:14 | Cardiology Progress Note ---
Assessment/Plan Assessment/Plan 1. Right upper extremity ataxia, acute in onset. 2. Coronary calcification noted on CT scan per report to [facility]. 3. Paroxysmal episodes of atrial fibrillation. 4. Pericardial effusion history. 5. Renal insufficiency. 6. Status post spinal surgery. 7. Multiple myeloma. 8. carotid stenosis mild degree 9. dep gamez white matter abn noted on mri 10. anemia 11. hyperglycemia appreciate neuro input sx have improved sig adn slmost resolved tele sinus ekg is fine some low grade fever IS will be started mri noted no acute cva , ct neg carotid mod righ stensosis dr wheat feel plavix indicated when safe will have ziopatch as soon as he is carmela to see hid cardiologsit the sooner the better then decide about adtion of xarelto at a futeurdate his a1c discuseed will need fu with pmd adn cardiologsit his he understood dc planning timming per dr glasgow Subjective Cardiovascular: Denies: chest pain, lightheadedness, palpitations Respiratory: Denies: shortness of breath Gastrointestinal/Abdominal: Denies: abdominal pain Genitourinary: Denies: burning Objective Last 24 Hour Vital Signs Date Time Temp Pulse Resp B/P (MAP) Pulse Ox O2 Delivery O2 Flow Rate FiO2 07/23/19 16:00 86 07/23/19 12:00 83 07/23/19 12:00 99.1 81 20 116/68 (84) 95 07/23/19 10:53 68 20 98 07/23/19 09:00 Room Air 07/23/19 08:00 98.6 83 20 130/75 (93) 94 07/23/19 08:00 104 07/23/19 04:00 98.2 85 20 113/65 (81) 93 07/23/19 04:00 86 07/23/19 00:23 84 07/23/19 00:00 97.6 75 20 130/57 (81) 95 07/23/19 00:00 98.1 82 20 133/61 (85) 95 07/22/19 21:00 Room Air General Appearance: no apparent distress, alert Neck: supple Cardiovascular: normal rate Respiratory/Chest: lungs clear Abdomen: normal bowel sounds, non tender, soft Extremities: no swelling Neurologic: other - finger to nose testing shows almost complete resolution o fdysmetria he was noted to have last nite Intake and Output 07/22/19 07/23/19 19:00 07:00 Intake Total 1950 ml Output Total 420 ml Balance 1530 ml Intake Oral 100 ml IV Total 1600 ml Other 250 ml Output Urine Total 150 ml Drainage Total 20 ml Estimated Blood Loss 250 ml # Voids 1 Laboratory Tests Test 07/23/19 06:05 White Blood Count 5.6 K/UL (4.8-10.8) Red Blood Count 2.99 M/UL (4.70-6.10) L Hemoglobin 10.1 G/DL (14.2-18.0) L Hematocrit 29.6 % (42.0-52.0) L Mean Corpuscular Volume 99 FL (80-99) Mean Corpuscular Hemoglobin 33.9 PG (27.0-31.0) H Mean Corpuscular Hemoglobin Concent 34.2 G/DL (32.0-36.0) Red Cell Distribution Width 11.1 % (11.6-14.8) L Platelet Count 82 K/UL (150-450) L Mean Platelet Volume 7.0 FL (6.5-10.1) Neutrophils (%) (Auto) % (45.0-75.0) Lymphocytes (%) (Auto) % (20.0-45.0) Monocytes (%) (Auto) % (1.0-10.0) Eosinophils (%) (Auto) % (0.0-3.0) Basophils (%) (Auto) % (0.0-2.0) Differential Total Cells Counted 100 Neutrophils % (Manual) 78 % (45-75) H Lymphocytes % (Manual) 11 % (20-45) L Monocytes % (Manual) 11 % (1-10) H Eosinophils % (Manual) 0 % (0-3) Basophils % (Manual) 0 % (0-2) Band Neutrophils 0 % (0-8) Platelet Estimate Decreased L Platelet Morphology Normal Hypochromasia 1+ Erythrocyte Sedimentation Rate 15 MM/HR (0-20) Sodium Level 139 MMOL/L (136-145) Potassium Level 3.7 MMOL/L (3.5-5.1) Chloride Level 106 MMOL/L (98-107) Carbon Dioxide Level 26 MMOL/L (21-32) Anion Gap 7 mmol/L (5-15) Blood Urea Nitrogen 20 mg/dL (7-18) H Creatinine 1.1 MG/DL (0.55-1.30) Estimat Glomerular Filtration Rate > 60 mL/min (>60) Glucose Level 108 MG/DL (74-106) H Hemoglobin A1c 6.6 % (4.3-6.0) H Calcium Level 7.9 MG/DL (8.5-10.1) L Total Bilirubin 0.7 MG/DL (0.2-1.0) Aspartate Amino Transf (AST/SGOT) 10 U/L (15-37) L Alanine Aminotransferase (ALT/SGPT) 19 U/L (12-78) Alkaline Phosphatase 31 U/L (46-116) L Total Protein 5.1 G/DL (6.4-8.2) L Albumin 3.1 G/DL (3.4-5.0) L Globulin 2.0 g/dL Albumin/Globulin Ratio 1.5 (1.0-2.7) Thyroid Stimulating Hormone (TSH) 2.882 uiU/mL (0.358-3.740) Rapid Plasma Reagin Pending Elton Alvarado MD Jul 23, 2019 19:14
[2019-07-23 20:00] VITALS: BP 117/52
[2019-07-23] MEDS: Tamsulosin 0.4mg cap ORAL SCH (20:41)
[2019-07-24] VITALS: BP 105/60
[2019-07-24] MEDS: HYDROmorphone 1mg/ml Carpuject SUBQ PRN (00:12)
[2019-07-24] MEDS: D5 1/2NS 1,000 ML IV SCH (01:23)
[2019-07-24 04:00] VITALS: BP 124/66
[2019-07-24] MEDS: oxyCODONE 5mg IR tab ORAL PRN (04:20)
[2019-07-24] MEDS ORDERED: oxyCODONE 5mg IR tab ORAL SCH (07:20)
[2019-07-24] MEDS ORDERED: oxyCODONE 5mg IR tab ORAL PRN ×2 (07:30→10:00)
[2019-07-24] MEDS ORDERED: Metamucil Pkt ORAL PRN (07:30)
[2019-07-24 08:00] VITALS: BP 123/67
[2019-07-24 08:51] LABS: HEMATOCRIT 32.5 % (42.0-52.0); MEAN CORPUSCULAR VOLUME 99 FL (80-99); PLATELET COUNT 105 K/UL (150-450); RED BLOOD COUNT 3.29 M/UL (4.70-6.10); RED CELL DISTRIBUTION WIDTH 10.9 % (11.6-14.8); WHITE BLOOD COUNT 6.9 K/UL (4.8-10.8)
[2019-07-24] MEDS ORDERED: Sennosides 8.6mg tab ORAL SCH (09:00)
--- NOTE | 2019-07-24 09:00 | Progress Note ---
DATE: 07/24/2019 ACUTE PAIN MANAGEMENT PHYSICIAN PROGRESS NOTE MEDICATIONS: Medication administration record reviewed. Medications include Colace, Protonix, Flomax. P.r.n. medications include Fioricet, Benadryl, Chloraseptic spray, Mylanta, Catapres, Dilaudid, Zofran, Restoril, Artificial Tears, Tylenol or oxycodone, Dilaudid. OBJECTIVE: Vital signs within normal limits. T-max of 99.5, currently afebrile. Pulse 82, respirations 20, blood pressure 124/66. Oxygen saturation 97% on room air. LABORATORY AND DIAGNOSTIC DATA: No interval laboratory studies. Diagnostic testing shows a brain MRI yesterday morning showing negative for acute intracranial bleed, mass effect, or infarct. I saw the patient at bedside with the nurse RN, Fantasma. I discussed the case with the overnight nurse, RN, Xi. The patient had been alternating the subcutaneous Dilaudid 1 mg along with the p.r.n. 10 mg dose of oxycodone. To recall, yesterday I increased the oxycodone from instant release dosing from 5 mg to 10 mg. The 10 mg was very well tolerated and the patient stated that he has still considerable incisional pain. I did explain to the patient that incisional pain will be significant for the next 48 hours and I suggested to increase the oxycodone instant release dose once again from 10 mg to trial of both 15 mg and 20 mg p.r.n. I believe these doses should be well tolerated. The patient is wide awake and shows no signs of oversedation. His last dose of oxycodone 10 mg was at 4:20 this morning. I have asked the nurse Fantasma to dose the patient with 20 mg of instant release oxycodone as a trial and then we will alternate between 20 mg and 15 mg for the rest of the day. The patient states that subcutaneous Dilaudid does not seem to have much effect. Therefore, I will discontinue this medication to simplify analgesic his regimen. Thankfully, neurologically the patient is back to 100%. Diagnostic imaging including head CT, brain MRI, and bilateral carotid duplex scans have all been negative. The patient feels that his coordination and mental status are 100%. 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 The Hemovac drain remains in place. The output has decreased and at this time I will defer to Dr. Tobar to further management of the indwelling lumbar spine drain catheter. The patient is adequately eating food and I will Hep-Lock his IV fluids to encourage movement in and out of bed. The patient is currently seen sitting in a chair and is looking forward to ambulate with physical therapy later this morning. I did explain to the patient and the nurse, Fantasma, to please have physical therapy do stairs-training with the patient. The patient already has good supply of Percocet at home although he cannot recall the exact dosing. The patient also has excellent access to his oncologist who can renew oxycodone prescriptions ad-oslitario. Barrett Shi M.D. DR: INESSA JOB#: [id number] CC:
[2019-07-24] MEDS: Docusate 100mg cap ORAL SCH (09:13)
[2019-07-24 10:04] LABS: CHOLESTEROL 153 MG/DL (< 200); HDL CHOLESTEROL 44 MG/DL (40-60); TRIGLYCERIDES 102 MG/DL (30-150)
[2019-07-24 12:00] VITALS: BP 125/72
--- NOTE | 2019-07-24 12:49 | Orthopedic Spine Progress Note ---
Ortho Spine - Progress Note Subjective Symptoms: c/o post-op back pain, improved Objective Vital Signs: Last 24 Hour Vital Signs Date Time Temp Pulse Resp B/P (MAP) Pulse Ox O2 Delivery O2 Flow Rate FiO2 07/24/19 12:00 97.9 100 20 125/72 (89) 98 07/24/19 09:00 Room Air 07/24/19 08:00 97.9 99 18 123/67 (85) 97 07/24/19 08:00 101 07/24/19 04:00 99.3 82 20 124/66 (85) 97 07/24/19 04:00 78 07/24/19 00:42 99.5 07/24/19 00:00 98.8 89 20 105/60 (75) 96 07/24/19 00:00 81 07/23/19 21:00 Room Air 07/23/19 20:00 80 07/23/19 20:00 99.5 85 20 117/52 (73) 96 07/23/19 16:00 86 I&O: Intake and Output 07/23/19 07/24/19 19:00 07:00 Intake Total 1000 ml 461.7 ml Output Total 70 ml Balance 930 ml 461.7 ml IV Total 1000 ml 461.7 ml Drainage Total 70 ml Wound: clean, intact Drains: hemovac Neuro Status: stable - as compared to yesterday, but discoordination RUE resolved Assessment Procedure Performed: l2-5 laminectomy and discectomy Plan Plan: PT, pain management, d/c drain, discharge to home Aurelio Tobar MD Jul 24, 2019 12:49
--- NOTE | 2019-07-24 13:57 | Neurology Progress Note ---
Interim History Interim History Interim History Mr. Bonifacio Duong is a 69-year-old, right-handed, gentleman, who does have a past history of multiple myeloma which is under control at this point in time, paroxysmal atrial fibrillation related to a chemotherapeutic agent in the past, gastroesophageal reflux disease, coronary artery calcification, pulmonary embolism associated with a chemotherapeutic agent use, and lumbosacral spine disease. He underwent lumbosacral surgery on 07/22/2019. When he regained consciousness he noticed that his right upper extremity was poorly coordinated. When he was evaluated by Dr. Alvarado post-operatively he was noted to have right upper extremity dysmetria. He feels better today. His right upper extremity feels like it has normalized. Walking is still difficult. He continues to have pain at the surgical site. The coordination in his lower extremities is also still not normal. Denies any new neurological symptoms. Review of Systems Neuro Review of Systems Benign. Objective Physical Exam Last Vital Signs Date Time Temp Pulse Resp B/P (MAP) Pulse Ox O2 Delivery O2 Flow Rate FiO2 07/24/19 12:00 97.9 100 20 125/72 (89) 98 07/24/19 09:00 Room Air 07/22/19 18:05 3 Laboratory Tests Test 07/24/19 07:50 White Blood Count 6.9 K/UL (4.8-10.8) Red Blood Count 3.29 M/UL (4.70-6.10) L Hemoglobin 11.0 G/DL (14.2-18.0) L Hematocrit 32.5 % (42.0-52.0) L Mean Corpuscular Volume 99 FL (80-99) Mean Corpuscular Hemoglobin 33.5 PG (27.0-31.0) H Mean Corpuscular Hemoglobin Concent 33.9 G/DL (32.0-36.0) Red Cell Distribution Width 10.9 % (11.6-14.8) L Platelet Count 105 K/UL (150-450) L Mean Platelet Volume 6.7 FL (6.5-10.1) Neutrophils (%) (Auto) % (45.0-75.0) Lymphocytes (%) (Auto) % (20.0-45.0) Monocytes (%) (Auto) % (1.0-10.0) Eosinophils (%) (Auto) % (0.0-3.0) Basophils (%) (Auto) % (0.0-2.0) Differential Total Cells Counted 100 Neutrophils % (Manual) 72 % (45-75) Lymphocytes % (Manual) 15 % (20-45) L Monocytes % (Manual) 13 % (1-10) H Eosinophils % (Manual) 0 % (0-3) Basophils % (Manual) 0 % (0-2) Band Neutrophils 0 % (0-8) Platelet Estimate Decreased L Platelet Morphology Normal Polychromasia 1+ Triglycerides Level 102 MG/DL (30-150) Cholesterol Level 153 MG/DL (< 200) LDL Cholesterol 88 mg/dL (<100) HDL Cholesterol 44 MG/DL (40-60) Cholesterol/HDL Ratio 3.5 (3.3-4.4) Neurologic Exam Objective PHYSICAL EXAMINATION: GENERAL: The patient is a well developed, well nourished, gentleman, lying in bed, in no acute distress. HEAD: Normocephalic and atraumatic. NECK: No neck rigidity was observed. EENT: Benign. NEUROLOGIC EXAMINATION: MENTAL STATUS EXAMINATION: He was alert and awake. He was oriented to person, place and time. He was able to recall 3/3 words immediately after 1 minute and after 3 minutes. He was able to remember [employer] through [employer]. His mathematical skills were good. His visuospatial function was preserved. SPEECH: No dysarthria was noted. LANGUAGE: No aphasia was noted. CRANIAL NERVE EXAMINATION: II: The visual de leon were intact to confrontation testing. III, IV, : External ocular movements were full and pupils 3 mm in diameter equal, round, regular and reactive to light. V: The facial sensations were normal, and the temporales, masseters and pterygoids functioned normally. VII: The facial expressions were normal and no facial asymmetry was seen. VIII: The patient was able to hear well bilaterally and had no nystagmus. IX: The palate moved symmetrically on phonation. X: There was no hoarseness of voice. XI: The sternocleidomastoids and trapezii functioned normally. XII: The tongue was in the midline without any fasciculations or atrophy. MOTOR SYSTEM: The tone was normal in all 4 extremities. Examination of muscle mass revealed no focal wasting. Examination of power revealed G 5/5 power except for G 3/5 in the right ankle dorsiflexors and toe extensors. SENSORY EXAMINATION: Sensations to pinprick, light touch, and graphesthesia were normal. COORDINATION: [id number] was performed well bilaterally. [id number] testing was performed well on the left side but was dysmetric on the right side. Rapid alternating movements were normal on the left side and minimally clumsy on the right. REFLEXES: 2++ on the right and 2+ on the left at the biceps, triceps, brachioradialis, and knees. 0 at both ankles. The plantar responses were flexor bilaterally. STANCE & GAIT: Could not be tested. Impression/Recommendations Diagnostic Impression DIAGNOSTIC IMPRESSION: 1. Mr. Bonifacio Duong is a 69-year-old, right-handed, gentleman, who does have a past history of multiple myeloma which is under control at this point in time, paroxysmal atrial fibrillation related to a chemotherapeutic agent in the past, gastroesophageal reflux disease, coronary artery calcification, pulmonary embolism associated with a chemotherapeutic agent use, and lumbosacral spine disease. He underwent lumbosacral surgery on 07/22/2019. 2. When he regained consciousness he noticed that his right upper extremity was poorly coordinated. When he was evaluated by Dr. Alvarado post-operatively he was noted to have right upper extremity dysmetria. 3. He feels better today. His right upper extremity feels like it has normalized. Walking is still difficult. He continues to have pain at the surgical site. The coordination in his lower extremities is also still not normal. Denies any new neurological symptoms. 4. On neurological examination, at this time, he does have weakness in the right ankle dorsiflexors and toe extensors. The weakness in the right finger extensors has resolved. He continues to have brisker reflexes on the right side compared to the left. He continues to have right extremity dysmetria and right upper extremity dysdiadochokinesis. 5. The CT scan of the brain performed on 07/22/2019 is benign. 6. The MRI scan of the brain performed on 07/23/2019 reveals no acute pathology but does reveal deep white matter changes on both sides with a relatively large area in the left centrum semiovale. 7. Laboratory data for treatable causes of cerebrovascular disease revealed that his hemoglobin A1c is at 6.6%. 8. The cerebrovascular noninvasive profile revealed less than 50% stenosis on the right side. On the left side the findings were equivocal. Flow velocity suggested 50 to 69% stenosis but imaging revealed less than 50% stenosis. 9. The patient's history, neurological examination, laboratory data and imaging studies, are most consistent with recrudescence of neurological dysfunction in an area of old ischemia in the left centrum semiovale which was unnoticed in the past. The recrudescence of symptoms is most probably related to the recent anesthesia and surgical procedure. 10. His neurological function has improved significantly. Recommendations RECOMMENDATIONS: 1. Continue present management. 2. Try to keep systolic blood pressure in the 110-130 range. 3. Better glycemic control. Aim for hemoglobin A1c of less than 6%. 4. Start Plavix 75 mg daily as soon as it is safe from the surgical point of view. 5. Prolonged cardiac monitoring to evaluate for paroxysmal atrial fibrillation, and if the patient does have that condition he should be anticoagulated. 6. Follow-up in office in approximately 6 to 8 weeks. Napoleon Whaley M.D., M.S.P.H. Neurologist & Clinical Neurophysiologist Napoleon Whaley MD Jul 24, 2019 13:57
--- NOTE | 2019-07-26 16:11 | Discharge Summary ---
Discharge Summary Hospital Course Date of Admission Jul 22, 2019 at 10:47 Date of Discharge Jul 24, 2019 at 14:53 Admitting Diagnosis L2-5 stenosis, RLE radiculopathy with footdrop Reason for Hospitalization: elective surgeyr HPI Bonifacio Duong is a 69 year old male who was admitted on Jul 22, 2019 at 10: 47 for L2-5 stenosis, RLE radiculopathy with footdrop Patient was admitted for elective surgery. Consultations Dr Alvarado - IM/cardio Dr Whaley - neurologist Dr Shi pain specialist Procedures 1. L3-L4 disc extrusion with radiculopathy, right lower extremity and footdrop. 2. Spinal stenosis L2-L3, L3-L4, and L4-L5 foramen. s/p 07/[address] Tobar 1. Right-sided laminectomy, microdiskectomy L3-L4. 2. Foraminotomy L3-L4 and L4-L5, right side. 3. Bilateral laminal foraminotomy performed through a right-sided approach at L3-L4 and L4-L5. 4. Neurolysis L4 nerve roots. 5. Use of operating microscope. 6. Neurodiagnostic monitoring. Hospital Course status post surgery initially IV fluids s/p perioperative antibiotics neurovascular status was closely monitored, patient reported right upper extremity pain and dis-coordination the night after surgery l improved the next day neurologist consulted for possible TIA CT of the head revealed no acute intracranial abnormality brain MRI demonstrated no evidence of acute intracranial bleeding, mass-effect or infarct MRI of the cervical spine revealed no acute abnormality. Multilevel degenerative changes noted. Significant neural foraminal stenosis carotid duplex revealed less than 50% diameter stenosis on the right per neurologist , patient history, neurological examination , imaging studies were most consistent with recrudescence of neurological dysfunction in the area of old ischemia in the left central semiovale , which was unnoticed in the past the recrudescence of symptoms was most probably related to the recent anesthesia and surgical procedure patient was recommended to start on Plavix ,when was safe from surgical point of view incision remained clean, dry, and intact pain management was addressed pain specialist followed; pain controlled drain output was closely monitored, drain discontinued prior to discharge remained hemodynamically stable ambulated with PT fall precautions maintained; safe for ambulation DVT prophylaxis provided use of incentive spirometry was encouraged while in the bed tolerated diet , IV fluids discontinued GI prophylaxis provided antiemetics were on board as needed blood pressure was managed with clonidine and remained stable blood sugar was closely monitored voided freely bowel regimen instituted patient was stable for discharge discharge instructions provided follow up with surgeon in the clinic as advised FINAL DIAGNOSES 1. L3-L4 disc extrusion with radiculopathy, right lower extremity and footdrop. 2. Spinal stenosis L2-L3, L3-L4, and L4-L5 foramen. 3. s/p L2-L5 laminectomy and discectomy 4. Acute right upper extremity ataxia 5. Paroxysmal atrial fibrillation 6. Multiple myeloma 7. status post DVT, requiring vena cava filter 8. Carotid stenosis , mild degree 9. Anemia 10. Hyperglycemia 11. Renal insufficiency 12. History of pericardial effusion Discharge Medications Continued Medications: Dexamethasone (Dexamethasone) 4 Mg Tablet 40 MG IV QWEEK for myeloma, TAB (This prescription has been renewed) Doxycycline Monohydrate* (Doxycycline Monohydrate*) 100 Mg Capsule 100 MG ORAL TWICE A DAY for prostatitis, #14 CAP 0 Refills (This prescription has been renewed) [venclexta] () 200 MG PO DAILY for myeloma (This prescription has been renewed) Discharge Condition Upon Discharge: stable Discharge Vital Signs Last Vital Signs Date Time Temp Pulse Resp B/P (MAP) Pulse Ox O2 Delivery O2 Flow Rate FiO2 07/24/19 12:00 97.9 100 20 125/72 (89) 98 07/24/19 09:00 Room Air 07/22/19 18:05 3 Discharge Disposition Patient was discharged to Home (01) Discharge Instructions Discharge Instructions Special Instructions I have been assigned to complete a D/C Summary on this account. I was not involved in the patient management Merari Batres NP Jul 26, 2019 16:11
--- NOTE | 2019-08-02 16:02 | Diagnostic Imaging Report ---
INDICATION: Pain, intraoperative TECHNIQUE: Intraoperative imaging Fluoroscopy time: 5.9 seconds Total dose: 0.77585 mGym2 Total number of images: 2 COMPARISON: None FINDINGS: Intraoperative images demonstrate localizing needles projected posteriorly to what are presumably L2-3 and L3-4. Subsequent images demonstrate surgical tool projected posterior to L4 IMPRESSION: Intraoperative imaging, as described
== END 2019-07-24 14:53 | disposition home or self-care (01) | DRG 519 ==
LOC: SDSOVERFLO 07-22 10:47 → 3E 07-22 18:30 → 2E 07-22 22:45
PROC: 0SB20ZZ Excision of Lumbar Vertebral Disc, Open Approach (ICD-10-PCS; principal; 2019-07-22 13:00)
PROC: 01NB0ZZ Release Lumbar Nerve, Open Approach (ICD-10-PCS; principal; 2019-07-22 13:00)
DX: M51.16 Intervertebral disc disorders with radiculopathy, lumbar region (principal); C90.00 Multiple myeloma not having achieved remission; M48.061 Spinal stenosis, lumbar region without neurogenic claudication; M21.372 Foot drop, left foot; I65.21 Occlusion and stenosis of right carotid artery; N28.9 Disorder of kidney and ureter, unspecified; D64.9 Anemia, unspecified; I48.0 Paroxysmal atrial fibrillation; Z86.711 Personal history of pulmonary embolism; Z95.828 Presence of other vascular implants and grafts; R27.8 Other lack of coordination; I25.10 Atherosclerotic heart disease of native coronary artery without angina pectoris; R73.9 Hyperglycemia, unspecified
CPT/HCPCS: 36415; 70450; 70551; 72020; 72141; 76000; 80053; 80061; 83036; 84443; 85007; 85025; 85651; 86592; 86850; 86870; 86900; 86901; 87081; 93005; 93306; 93880; 94003; 94150; C9399; J2710